=== PATIENT | female | born 1980 | race African-American/Black ===

== ENCOUNTER 2021-07-18 17:54 | Emergency (ER) | payer OTHER ==
[~2021-07-18] VITALS: Ht 167.6 cm; Wt 100.0 kg
[2021-07-18 18:17] VITALS: BP 142/84
--- NOTE | 2021-07-18 18:28 | PHYS DOC ---
Adult General HPI HPI Patient is a 41-year-old female with a recent past medical history of hysterectomy, 8 days ago at [facility] at which time there was a complication and the surgeon punctured her bladder and she has had a Amanda catheter since. States she has not had a change since. States that it feels like it is poking her. Denies any leakage around the catheter. States she has been making urine. Denies any hematuria. Denies any recent other traumas, travels, illness, fevers, chest pain, shortness of breath, abdominal pain, nausea, vomiting. Review of Systems Review of Systems Review of systems otherwise unremarkable except noted in HPI Physical Exam Physical Exam Constitutional: Well developed, well nourished, no acute distress, non-toxic appearance. [] HENT: Normocephalic, atraumatic, bilateral external ears normal, oropharynx moist, no oral exudates, nose normal. [] Eyes: conjunctiva normal, no discharge. [] Neck: Normal range of motion, no tenderness, supple, no stridor. [] Cardiovascular:Heart rate regular rhythm, no murmur [] Lungs & Thorax: No respiratory distress or abnormal breath sounds Abdomen: soft, no tenderness, no masses, no pulsatile masses. : Amanda catheter in place with no obvious drainage or bleeding [] Skin: Warm, dry, no erythema, no rash. [] Back: no CVA tenderness. [] Extremities: No tenderness, no cyanosis, no clubbing, ROM intact, no edema. [] Neurologic: Alert and oriented X 3, no focal deficits noted. [] Psychologic: Affect normal, judgement normal, mood normal. [] EKG EKG [] Radiology/Procedures Radiology/Procedures [] Heart Score C/O Chest Pain: No Risk Factors: Risk Factors: DM, Current or recent (<one month) smoker, HTN, HLP, family history of CAD, obesity. Risk Scores: Risk Factors: DM, Current or recent (<one month) smoker, HTN, HLP, family history of CAD, obesity. Course & Med Decision Making Course & Med Decision Making Patient is a 41-year-old female who presents with a chief complaint of status post 8 days hysterectomy, with Amanda in place wanting Amanda catheter check Vital signs not concerning. Physical exam noted above. Urinalysis not concerning for infection. Patient wanted Amanda removed. Able to urinate on her own. Discussed with patient however that surgeon placed a Amanad because she had a hole in her bladder/this was not healed yet because leakage of urine into her abdomen and cause significant illness, disability and . Discussed all findings with patient and recommended changing of Amanda. Patient agreed to placing Amanda back. Advised to follow-up in the morning with surgeon. Advised to keep her upcoming appointment with surgeon and urologist. Gave return precautions to the ED. Patient grateful, verbalized understanding and agreed with plan of discharge [] Dragon Disclaimer Dragon Disclaimer This electronic medical record was generated, in whole or in part, using a voice recognition dictation system. Departure Departure: Impression: Primary Impression: Urinary catheter (Amanda) change required Disposition: 01 HOME / SELF CARE / HOMELESS Referrals: DAY ALEXANDER MD (PCP) Patient Instructions: Amanda Catheter Care, Adult Additional Instructions: Thank you for coming into the emergency department tonight and allowing us to take care of you. Please read the attached information carefully to go over things we discussed. It is very important you follow-up in the morning with your surgeon who did did your recent surgery and placed your Amanda catheter to update on your ED visit and set up an immediate follow-up visit. Please keep your Amanda catheter in until your surgeon advised you to take it out. Please keep your upcoming appointment for reevaluation of your catheter in your blad mathew. Please come in with new or concerning symptoms as discussed BAKARI MIRELES MD Jul 18, 2021 18:28
[2021-07-18 20:14] LABS: CLARITY,URINE CLEAR; COLOR,URINE YELLOW; GLUCOSE,URINE NEG (NEG)
[2021-07-18 20:15] LABS: BACTERIA,URINE FEW /HPF (0-FEW); NITRITE,URINE NEG (NEG); SQUAMOUS EPITHELIAL CELL,UR MANY /LPF
== END 2021-07-18 20:49 | disposition home or self-care (01) ==
LOC: ER 17:54
DX: Z46.6 Encounter for fitting and adjustment of urinary device (principal)
CPT/HCPCS: 51702; 81001; 87086; 99284

== ENCOUNTER 2021-09-10 18:37 | Emergency (ER) | payer OTHER ==
--- NOTE | 2021-09-10 18:57 | PHYS DOC ---
Past History Additional Past Medical Histor: Fibroids Past Surgical History: Hysterectomy Alcohol Use: Occasionally Adult General Chief Complaint Chief Complaint: PAIN ON URINATION HPI HPI Patient is a 41-year-old female who presents with a chief complaint of dysuria over the last couple of days. States he has an odor as well. Denies any recent traumas, travels, illness, fevers, chest pain, shortness of breath, abdominal pain, nausea, vomiting, hematuria, diarrhea or blood in the stool. Denies any vaginal bleeding or discharge. Denies any history of STIs Review of Systems Review of Systems Review of systems otherwise unremarkable except noted in HPI Allergies Allergies Allergies Coded Allergies Type Severity Reaction Last Updated Verified amoxicillin Allergy Unknown 09/10/21 Yes latex Allergy Unknown 09/10/21 Yes Physical Exam Physical Exam Constitutional: Well developed, well nourished, no acute distress, non-toxic appearance. [] HENT: Normocephalic, atraumatic, oropharynx moist, no oral exudates, nose normal. [] Eyes: conjunctiva normal, no discharge. [] Neck: Normal range of motion, no tenderness, supple, no stridor. [] Cardiovascular: Heart rate regular rhythm, no murmur [] Lungs & Thorax: Bilateral breath sounds clear to auscultation [] Abdomen: soft, no tenderness, no masses, no pulsatile masses. [] Skin: Warm, dry, no erythema, no rash. [] Back: no CVA tenderness. [] Extremities: No tenderness, no cyanosis, no clubbing, ROM intact, no edema. [] Neurologic: Alert and oriented X 3, no focal deficits noted. [] Psychologic: Affect normal, judgement normal, mood normal. [] EKG EKG [] Radiology/Procedures Radiology/Procedures [] Heart Score C/O Chest Pain: No Risk Factors: Risk Factors: DM, Current or recent (<one month) smoker, HTN, HLP, family history of CAD, obesity. Risk Scores: Risk Factors: DM, Current or recent (<one month) smoker, HTN, HLP, family history of CAD, obesity. Course & Med Decision Making Course & Med Decision Making Patient is a 41-year-old female who presents with a chief complaint of dysuria and foul-smelling urine Vital signs nonconcerning. Physical exam noted above. Patient with bacteria and cells in her urine but no leukocyte esterase or nitrite. Patient states that is how she feels when she gets a UTI and wants antibiotics. Started on antibiotics in the ED. Given Pyridium. Given pain medicine. Advised to follow-up tomorrow with primary care physician to set up a follow-up for next week for reevaluation of her urine. Patient grateful, verbalized understanding and agreed with plan of discharge Dragon Disclaimer Dragon Disclaimer This electronic medical record was generated, in whole or in part, using a voice recognition dictation system. Departure Departure: Impression: Primary Impression: Dysuria Additional Impression: Bacteriuria Disposition: HOME / SELF CARE / HOMELESS Condition: STABLE Referrals: DAY ALEXANDER MD (PCP) Patient Instructions: Dysuria Additional Instructions: Thank you for coming into the emergency department tonight and allowing us to take care of you. Please read the attached information carefully to go over things we discussed. Please continue Tylenol 2000 g every 8 hours, ibuprofen 600 mg every 8 hours, Benadryl 50 mg every 6 hours as needed. Please take antibiotics as prescribed and until gone. Please follow-up in the morning with your primary care physician update on your ED visit and set up a follow-up next week for reevaluation and repeat urinalysis. Please come in with new or concerning symptoms as discussed Scripts Ciprofloxacin Hcl (CIPRO) 500 Mg Tablet 1 TAB PO DAILY for UTI for 3 Days, #3 TAB 0 Refills Prov: BAKARI MIRELES MD 09/10/21 Problem Qualifiers BAKARI MIRELES MD September 10, 2021 18:57
[2021-09-10 20:25] LABS: CLARITY,URINE HAZY; COLOR,URINE YELLOW; GLUCOSE,URINE NEG (NEG)
[2021-09-10 20:26] LABS: BACTERIA,URINE MANY /HPF (0-FEW); NITRITE,URINE NEG (NEG); RBC,URINE OCC /HPF (0-2); SQUAMOUS EPITHELIAL CELL,UR MOD /LPF; UROBILINOGEN,URINE 0.2 mg/dL (0.2 mg/dL)
[2021-09-10] MEDS ORDERED: CIPR500T94 PO (20:39)
[2021-09-10] MEDS ORDERED: oxyCODONE/APAP 5/325 1 TAB TABLET PO ONE (20:45)
[2021-09-10] MEDS ORDERED: CIPROFLOXACIN HCL 500 MG TABLET PO ONE (20:45)
[2021-09-10] MEDS ORDERED: PHENAZOPYRIDINE 200 MG TABLET. PO ONE (20:45)
== END 2021-09-10 20:55 | disposition home or self-care (01) ==
LOC: ER 18:39
DX: R82.71 Bacteriuria (principal); R30.0 Dysuria; Z90.710 Acquired absence of both cervix and uterus; Z88.1 Allergy status to other antibiotic agents; Z91.040 Latex allergy status
CPT/HCPCS: 81001; 87077; 87086; 87186; 99284